=== PATIENT | male | born 1975 | race Caucasian/White ===

== ENCOUNTER 2017-08-31 16:16 | Emergency (ER) | payer SELFPAY ==
--- NOTE | 2017-08-31 16:33 | UC ---
Laceration HPI - HPI Summary HPI Summary: 42 y/o male presents to the urgent care c/o left thumb avulse laceration w/ 2 sliding pipes while moving something at work around 1540pm today. 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 Pt states pain is 2/10 and can move his finger w/o any difficulty. Pt denies numbness and tingling sensation over the left hand or thumb. Pt is not UTD w/ his Tetanus vaccine. pt denies fever, SOB, chest pain, abdominal pain, N/V/D - History Of Current Complaint Stated Complaint: FINGER LACERATION Time Seen by Provider: 08/31/17 16:32 Hx Obtained From: Patient Laceration Location: Finger - left thumb laceration Mechanism Of Injury: Sharp Trauma Onset/Duration: Lasting Hours - 2hrs ago Severity: Moderate Pain Intensity: 2 Pain Scale Used: 0-10 Numeric Aggravating Factors: Movement Related History: Dominant Hand Right - Allergies/Home Medications Allergies/Adverse Reactions: Allergies Allergy/AdvReac Type Severity Reaction Status Date / Time Penicillins Allergy Severe Anaphylatic Verified 08/31/17 16:44 Shock PMH/Surg Hx/FS Hx/Imm Hx Previously Healthy: Yes - Pt denies PMHX - Family History Known Family History: Positive: None - Pt denies FMHX - Social History Occupation: Employed Full-time Lives: With Family - Immunization History Hx Tetanus, Diphtheria Vaccination: No Review of Systems Constitutional: Negative Skin: Bruising - left thumb s/p laceration Eyes: Negative ENT: Negative Respiratory: Negative Cardiovascular: Negative Gastrointestinal: Negative Genitourinary: Negative Motor: Negative Musculoskeletal: Other: - left thumb pain s/p laceration w/ 2 pipes Neurological: Negative Psychological: Negative Is Patient Immunocompromised?: No All Other Systems Reviewed And Are Negative: Yes Physical Exam - Summary Physical Exam Summary: Vital Signs Reviewed: Yes General: well developed, well nourished male sitting in the examining table w/o any apparent distress Eye Exam: Normal Eyes: Positive: Conjunctiva Clear - PERRLA, EOMI, fundi grossly normal ENT: Positive: Normal ENT inspection, Hearing grossly normal, Pharynx normal, TMs normal Neck: Positive: Supple, Nontender, No Lymphadenopathy Respiratory: Positive: Chest non-tender, Lungs clear, Normal breath sounds, No respiratory distress Cardiovascular: Positive: RRR, No Murmur, Pulses Normal, Brisk Capillary Refill Abdomen Description: Positive: Nontender, No Organomegaly, Soft. Negative: CVA Tenderness (R), CVA Tenderness (L) Bowel Sounds: Positive: Present Musculoskeletal: Positive: Strength Intact, ROM Intact, No Edema Neurological: Positive: Alert, Muscle Tone Normal Psychological Exam: Normal Skin: Positive: Left hand w/ a superficial irregular semilunar avulse laceration in the medial aspect of left first phalanx about 4.2cm in size, tender to palpation. FROM of left 1st phalanx, Bleeding stopped, bruising and ecchymosis observed. sensation intact, capillary refill brisk, and pulses WNL. Triage Information Reviewed: Yes Laceration Repair - Laceration Repair 1 Description: Irregular - semilunar superficial avulse laceration Laceration Size After Repair: Length (cm) - 4.2cm Modified For Repair: No Type Injection: Local Anesthesia Used: 2.0% Lido - digital block perfomed w/ 2ml Cleansing Completed Via Routine Prep: Yes Irrigation With Pressure Irrigation Device: Yes Closure Material: Sutures - 10 sutures applied Closure Method: Single Layer Suture Of: Skin, SQ Suture Type: Nylon - 5.0 Laceration Course/Dx - Course/Dx Course Of Treatment: 42 y/o male presents to the urgent care c/o left thumb avulse laceration w/ 2 sliding pipes while moving something at work around 1540pm today. 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 Pt states pain is 2/10 and can move his finger w/o any difficulty. Pt denies numbness and tingling sensation over the left hand or thumb. Pt is not UTD w/ his Tetanus vaccine. pt denies fever, SOB, chest pain, abdominal pain, N/V/D Hx obtained. Pt w/ a superficial irregular avulse laceration in the medial left first phalanx about 4.2cm in size, tender to palpation. FROM of left phalanx on examination. LACERATION PROCEDURE NOTE: . Copious irrigation was done with saline by the nurse and the wound explored. There was no FB or deep structure injury noted. FROM of left forearm. procedure was explained and consent obtained, Timeout performed. Digital block performed w/ 1ml of 2% on each side at the base of 1st phalanx,Pt neurovacular intact. Sterile drape and prep were don. There were 10 sutures with 5.0 nylon type of suture. The length of the wound after closure was 4.0cm. No debridement done. Wound was covered bacitracin with sterile non adherent dressing. The Pt tolerated the procedure well without adverse effects. Neurovascular intact and FROM. Tdap ordered and applied by nurse. Pt advised to f/u suture removal in 12-14 days Pt Rx Bactrim PO since wound was dirty. Pt advised if any signs of infection develop despite taking antibiotic to immediately return to the urgent care or go to the ER for further management and treatment. Pt understood and agreed and left the clinic ambulating A&Ox3. - Differential Dx - Laceration/Wound Differental Diagnoses: Abrasion, Avulsion, Laceration, Puncture Wound, Tendon Laceration Provider Diagnoses: 1- left first phalanx laceration repair Discharge - Sign-Out/Discharge Documenting (check all that apply): Discharge/Admit/Transfer - D/C home - Discharge Plan Condition: Stable Disposition: HOME Prescriptions: Bacitracin OINTMENT* 1 applic TOPICAL BID #1 tube Sulfamethox/Trimethoprim DS* [Bactrim DS 800/160 TAB*] 1 tab PO BID #14 tab Patient Education Materials: Care For Your Stitches (ED), Laceration (ED) Forms: *Work Release Referrals: [facility] – [place] [facility] [Outside] - 1 Week Additional Instructions: 1-Please take full course of antibiotic to avoid resistance. 2- Keep wound clean and dry and avoid excessive movement w/ your thumb 3- F/u suture removal in 10-12 days w/ your PCP or here at the urgent care. 4-Take Ibuprofen or Tylenol PO q6-8hrs prn for pain or swelling. 5- If you develop fever or redness around your finger despite the antibiotic please go to the ER immediately or return to the Urgent care. - Billing Disposition and Condition Condition: STABLE Disposition: HOME
[2017-08-31 16:44] VITALS: BP 128/89
[2017-08-31] MEDS ORDERED: Lidocaine 2% PF * 5 ML VIAL INJ ONE (16:56)
[2017-08-31] MEDS ORDERED: Tetan/Diph/Pertus SYR(Tdap)* 0.5 ML SYR(BOOSTRIX) use SYR IM ONE (16:57)
== END 2017-08-31 18:15 | disposition home or self-care (01) ==
LOC: UCEAST 16:16
DX: S61.211A Laceration without foreign body of left index finger without damage to nail, initial encounter (principal); Z88.0 Allergy status to penicillin; X58.XXXA Exposure to other specified factors, initial encounter; Y93.89 Activity, other specified; Y99.0 Civilian activity done for income or pay
CPT/HCPCS: 12002; 90715; 99202; G0463